=== PATIENT | male | born 1945 | race Caucasian/White ===

== ENCOUNTER 2023-10-26 12:12 | Outpatient (OUT) | payer OTHER, SELFPAY ==
--- NOTE | 2023-10-26 13:19 | RT_ITS ---
[facility] Test Date: 2023-10-26 Pat Name: LINDA MEAD Department: Room: - Gender: Male Time Buyer: Ron Mohamud RRT : 1945 Requested By: [id number] Order Number: [id number] Reading MD: Mat Venegas Interpretive Statements Spirometry was completed according to ATS criteria. Findings were considered accurate and reproducible. Both pre- and post-bronchodilator values utilized for spirometry. Spirometry (based on pre-bronchodilator values): -FEV1/FVC: Reduced @ 35% -FEV1: Severely reduced @ 47% -FVC: Normal @ 96% -There is no significant bronchodilator response. Impressions: -Spirometry shows a severe obstruction without a bronchodilator response as could be seen with COPD. Clinical correlation required. Electronically Signed On 10-27-2023 12:01:10 EDT by Mat Venegas
[2023-10-26] MEDS: ALBUTEROL SULFATE 2.5 MG/3 ML VIAL NEB IH (13:23)
[2023-10-26 13:50] LABS: Free T3 2.66 pg/mL (2.18-3.98); Thyroid Stimulating Hormone 2.521 uIU/mL (0.358-3.740)
--- NOTE | 2023-10-26 14:32 | XR_ITS ---
The [address] [address] Patient Name: LINDA MEAD MRN: [id number] date: 1945 Sex: M Assigned Patient Location: CARD Current Patient Location: CARD Accession/Order Number: [id number] Exam Date: 10/26/2023 14:25 Report Date: 10/26/2023 14:52 At the request of: NON-STAFF PHYSICIAN Procedure: XR chest 2V EXAM: XR chest 2V HISTORY: Emphysema J98.3 COMPARISON: None. TECHNIQUE: Upright PA and lateral chest x-ray FINDINGS: The heart is not enlarged and the vasculature is mildly distended. Slight prominence of interstitial markings are seen throughout the lungs. No acute infiltrate, effusion or pneumothorax is readily identified. Mild flattening of the hemidiaphragms suggest COPD. The osseous structures are grossly intact. XR/XR chest 2V IMPRESSION: There is mild prominence of the vasculature and mild prominence of the interstitial markings throughout the lungs. These findings appear fairly chronic in nature. There is no clear evidence of a focal infiltrate or overt cardiac decompensation. Direct comparison with a previous study would be helpful in determining the chronicity of these findings. Electronically authenticated by: VANDANA ANDREA Date: 10/26/2023 14:52
[2023-10-26 15:00] LABS: Free T4 1.24 ng/dL (0.76-1.46)
== END 2023-10-26 12:13 | disposition home or self-care (01) ==
LOC: CARD 12:16
DX: J98.3 Compensatory emphysema (principal); E03.9 Hypothyroidism, unspecified; J44.9 Chronic obstructive pulmonary disease, unspecified
CPT/HCPCS: 36415; 71046; 84439; 84443; 84481; 94060